=== PATIENT | female | born 1975 | race Hispanic/Latino ===

== ENCOUNTER 2019-09-03 14:18 | Outpatient (CLI) | payer OTHER ==
--- NOTE | 2019-09-03 15:58 | MMO ---
Bilateral MAMMO Bilat Diag [facility]. CLINICAL HISTORY: Patient is 43 years old and is seen for diagnostic exam. The patient has no family history of breast cancer. The patient has no personal history of cancer. VIEWS: The views performed were: bilateral craniocaudal with tomosynthesis; bilateral mediolateral oblique with tomosynthesis; and bilateral mediolateral with tomosynthesis. FILMS COMPARED: The present examination has been compared to a prior imaging study performed at [facility] on 09/03/2019. This study has been interpreted with the assistance of computer-aided detection. MAMMOGRAM FINDINGS: There are scattered fibroglandular densities. Finding 1: There is an asymmetry seen in the right breast at 6 o'clock. Ultrasound showed small lymph node. Finding 2: No mammographic or sonograhic abnormality is seen at the site of palpable concern in the right/left/either breast. There are no suspicious masses, suspicious calcifications, or new areas of architectural distortion. IMPRESSION: THERE IS NO MAMMOGRAPHIC EVIDENCE OF MALIGNANCY. A ROUTINE FOLLOW-UP MAMMOGRAM IN 1 YEAR IS RECOMMENDED. THE RESULTS OF THIS EXAM WERE SENT TO THE PATIENT. ACR BI-RADS Category 2 - Benign finding MAMMOGRAPHY NOTE: 1. A negative mammogram report should not delay a biopsy if a dominant of clinically suspicious mass is present. 2. Approximately 10% to 15% of breast cancers are not detected by mammography. 3. Adenosis and dense breasts may obscure an underlying neoplasm. Reported by: YOLANDE MORENO MD Electonically Signed: [id number]
--- NOTE | 2019-09-03 17:42 | ULT ---
RIGHT BREAST ULTRASOUND: HISTORY: Palpable abnormality 12 o'clock position right breast and a small nodular area noted 6 o'clock positi on on mammogram. FINDINGS: Real-time imaging at the 12 o'clock position at the region of palpable abnormality shows a small lobu le of fat corresponding to patient's palpable abnormality. At the 6 o'clock position, a small lymph node measuring in the 5 mm range was noted. IMPRESSION: BIRADS category 2 - benign findings.
== END 2019-09-03 14:19 | disposition home or self-care (01) ==
LOC: BICMAMMO 14:18
PROVIDERS: ATTEND Physician Assistant
DX: N63.14 Unspecified lump in the right breast, lower inner quadrant (principal)
CPT/HCPCS: 77066; G0279